=== PATIENT | female | born 1930 | race Caucasian/White ===

== ENCOUNTER → 2019-06-29 | Outpatient (CLI) | payer MEDICARE | LOC: COL.RAD 12:29 | DX: M47.816 Spondylosis without myelopathy or radiculopathy, lumbar region (principal); M41.86 Other forms of scoliosis, lumbar region; M47.814 Spondylosis without myelopathy or radiculopathy, thoracic region; I26.99 Other pulmonary embolism without acute cor pulmonale; R91.8 Other nonspecific abnormal finding of lung field ==

== ENCOUNTER → 2019-07-02 | Outpatient (CLI) | payer MEDICARE | LOC: COL.RAD 08:06 | DX: C34.92 Malignant neoplasm of unspecified part of left bronchus or lung (principal); C34.91 Malignant neoplasm of unspecified part of right bronchus or lung; I26.99 Other pulmonary embolism without acute cor pulmonale; R06.02 Shortness of breath | CPT/HCPCS: Q9967 ==

== ENCOUNTER → 2019-08-12 | Outpatient (CLI) | payer MEDICARE ==
[~2019-08-12] VITALS: Ht 157.5 cm; Wt 49.3 kg
[~2019-08-12] MED LIST: 00186-0372-20 IH; ACULAR 3 ML3 ML OU; CHONDROITIN/GLU1 SGL PO; COMBIGAN 0.2%-0.5 ML OS; ELIQUIS 5MG PO; MOTRIN 200200 MG/TAB PO; MULTI VITAMINS1 TAB PO; NORVASC2.5 MG PO; PROAIR HFA0.09 MG/AC IH; TOPROL XL 50MG50 MG PO; TYLENOL 8 HR PO; VITAMIN D31000 I1 PO; ZOLOFT 25MG25 MG PO
[2019-08-12 12:33] VITALS: BP 148/59; PULSE 70
[2019-08-12 13:00] VITALS: BP 190/73; PULSE 81
--- NOTE | 2019-08-12 13:00 | NUR ---
PT POSITIONED IN CT, DR FATIMA HERE TO START PROCEDURE
[2019-08-12 13:15] VITALS: BP 164/60; PULSE 85
--- NOTE | 2019-08-12 13:15 | NUR ---
SPECIMAN OBTAINED FROM LEFT SACRUM AREA, SPECIMAN PLACED IN FORMULIN. BANDAID OVER SITE, PT SAT UP, SITS IN W/C
[2019-08-12 13:20] VITALS: BP 160/56; PULSE 77
== END ==
LOC: COL.RAD 11:55
DX: C34.31 Malignant neoplasm of lower lobe, right bronchus or lung (principal); C79.51 Secondary malignant neoplasm of bone; I10 Essential (primary) hypertension